=== PATIENT | male | born 1965 | race Caucasian/White ===

== ENCOUNTER 2022-01-13 13:30 | Emergency (ER) | payer OTHER, MEDICAID, SELFPAY ==
[2022-01-13 15:23] VITALS: BP 120/81; PULSE 84; RESP 20; TEMP 36.5; O2SAT 97; BMI 47.0
--- NOTE | 2022-01-13 15:28 | ED_ITS ---
HPI - URI/Sore Throat General Chief Complaint: Upper Respiratory Symptoms Stated Complaint: Sinus infection Time Seen by Provider: 01/13/22 15:36 Source: patient and family Mode of arrival: ambulatory Limitations: no limitations History of Present Illness HPI Narrative: 56-year-old male with a past medical history of sinusitis with sinus surgery in the past presenting to the ER with complaints of 2 weeks of moderate nasal congestion/rhinorrhea/sinus pressure pain and intermittent headaches along with postnasal drip and productive cough for the past 2 weeks worse today. Reports that he tried to go to urgent care and they advised him that he should come to the ER for COVID testing. He denies any fevers, chills, dizziness, headaches medicine/stiffness trouble swallowing or breathing, chest pain or shortness of breath, dyspnea on exertion, orthopnea palpitations paresthesias, nausea/vomiting/diarrhea constipation black or bloody stools, lower extremity edema or calf tenderness, recent travel or sick contacts that he is aware of or any other symptoms complaints or concerns at this time. MD elicited complaint: rhinorrhea, nasal congestion and sinus pain Pertinent past history: sinusitis Onset (ago): week(s) (2) Consistency: constant and progressively worsening Severity: moderate Description of mucous: clear, watery and yellow Able to tolerate fluids by mouth: Yes Exacerbating factors: changing head position and leaning forward Relieving factors: nothing Associated symptoms: headache, rhinorrhea, nasal congestion, sore throat and cough Treatments prior to arrival: none Related Data Home Medications Medication Instructions Recorded Confirmed aspirin 81 mg tablet,delayed 81 mg PO DAILY 12/22/21 release (Adult Low Dose Aspirin) losartan 25 mg tablet 25 mg PO DAILY 12/22/21 metformin 850 mg tablet 850 mg PO BID 12/22/21 naproxen 500 mg tablet 500 mg PO BID 12/22/21 Previous Rx's Medication Instructions Recorded sildenafil 50 mg tablet (Viagra) 50 mg PO DAILY PRN sexual activity 12/22/21 #7 tabs amoxicillin 875 mg-potassium 1 tab PO BID 10 days #20 tabs 01/13/22 clavulanate 125 mg tablet mupirocin 2 % topical ointment 1 appl topical TID impetigo #22 01/13/22 grams prednisone 20 mg tablet 40 mg PO DAILY inflammation 5 days 01/13/22 #10 tabs Allergies Allergy/AdvReac Type Severity Reaction Status Date / Time Clindamycin HCl Allergy Unknown Unknown Uncoded 01/13/22 15:28 Review of Systems Review of Systems: Constitutional : No Weight loss, No Fever, No Chills, No Night Sweats, No Fatigue, No Malaise ENT/Mouth : + nasal congestion/rhinorrhea/sinus pressure pain, + sore throat, No Hearing loss, No Ear Pain, No Hoarseness, No Swallowing Difficulty Eyes: No Eye Pain, No Swelling, No Redness, No Foreign Body, No Discharge, No Vision Changes Cardiovascular : No Chest Pain, No SOB, No Dyspnea on Exertion, No Orthopnea, No Edema, No Palpitations Respiratory : + Cough, + Sputum, No Wheezing, No Smoke Exposure, No Dyspnea Gastrointestinal : No Nausea, No Vomiting, No Diarrhea, No Constipation, No abdominal Pain, No Hematochezia, No Melena Genitourinary : no irregular bleeding, No Dysuria, No Urinary Frequency, No Hematuria, No Urinary Incontinence, No Urgency, No Flank Pain, No Urinary Flow Changes, No Hesitancy Musculoskeletal : No joint pain, No Myalgias, No Joint Swelling Skin : No Skin Lesions, No rash Neuro : No Weakness, No Numbness, No Paresthesias, No Loss of Consciousness, No Dizziness, No Headache Psych : No Anxiety/Panic, No Depression, No SI/HI/AH/VH, No Social Issues, Heme/Lymph: No Bruising, No Bleeding,No Lymphadenopathy Endocrine : No Polyuria, No Polydipsia, No Temperature Intolerance Yes all other systems are reviewed and are negative [facility] Past Medical History Attestation statement: The following information was validated with the patient. Source: old records reviewed, obtained from family and nursing notes reviewed Medical History (Updated 01/13/22 @ 15:28 by MARIELOS Aldana) Hypogonadism, testicular Surgical History History of sinus surgery History of vascular surgery Family History Family History (Updated 10/16/21 @ 10:46 by RENA Hicks) Father No problems noted. Mother Diabetes Atrial fibrillation Social History Social History (Updated 12/22/21 @ 16:19 by RENA Lr) Alcohol intake: current Alcohol intake frequency: holidays/special occasions only Alcohol type: wine Patient Tobacco Use Status: Never used Tobacco Advance Directives: No Advance Directives Information Provided: No Physical Exam Vital Signs: Vital Signs: Last Vital Signs Temp 97.7 F 01/13/22 15:23 Pulse 84 01/13/22 15:23 Resp 20 01/13/22 15:23 BP 120/81 01/13/22 15:23 Pulse Ox 97 01/13/22 15:23 O2 Del Method 01/13/22 15:23 BMI result Body Mass Index 47.0 vital signs have been reviewed as normal and appeared to be correct. Blood p ressure normal. Heart rate normal. Respiration rate normal. Temperature normal. Oxygen saturation normal. Appearance: Alert. Oriented X3. No acute distress. Head: Normal external exam. Normocephalic. Atraumatic. Eyes: PERRLA. EOMI. Conjunctiva and sclera normal. Eyelids normal. ENT: EAC normal. TM's Normal. Pharynx normal. Uvula midline. Moist mucous membranes. No lesions/ulcerations or masses noted on the tongue. Normal voice. No trismus noted. No drooling noted. No muffled voice noted. Neck: Normal inspection. Neck supple. FROM. No adenopathy. Thyroid Normal. No tracheal deviation noted. No crepitus is noted. No meningeal signs. No neck mass noted. No signs of trauma noted. CVS: Normal heart rate and rhythm. Heart sound normal. Pulses normal throughout. No murmurs/rales/gallops. Respiratory: No respiratory distress. Painless inspiration. Breath sounds normal. No wheezes/rales/rhonchi noted. Chest nontender. No crepitus is noted. No accessory muscle usage noted or decreased air movement noted. No signs of trauma. Back: Full range of motion noted. Skin: Skin warm and dry. Normal skin color. Normal skin turgor. No rashes/lesions/lacerations noted. Extremities: No lower extremity edema. No calf tenderness is noted. Extremities exhibit normal range of motion and nontender. Neuro: Oriented X 3. No motor deficit. No sensory deficit. Reflexes normal. Normal steady gait. No focal neuro deficits noted. CN's II-XII intact bilaterally? Course Course Course Narrative: Patient most likely sinusitis/bronchitis. Will obtain a COVID and influenza swab. Will DC home with antibiotics and symptomatic treatment. No additional labs imaging indicated at this time as patient denies any other symptoms reports he feels like this is his sinus infection that he chronically gets. aLong instructions to follow-up with PCP and to return if any new or worsening symptoms. Patient with family at bedside understand and agree this plan. Reevaluation(s) Reevaluation #1: swab invalid and pt did not want to come back for re-swabs Time: 16:27 MDM - URI/Sore Throat Medical Records Attestation: I reviewed the patient's medical records. Lab Data Labs: Lab Results 01/13/22 01/13/22 Range/Units 15:30 15:30 COVID-19 (ANA) Invalid (Negative) COVID-19 Clin Com See Note Influenza Type A (STEPHANIE) Invalid (Negative) Influenza Type B (STEPHANIE) Invalid (Negative) Influenza A & B Note See Note Discharge Plan Discharge Clinical Impression: Sinusitis, Bronchitis, Impetigo Patient Disposition: Home, Self-Care Instructions: Impetigo (ED), Sinusitis (ED), Acute Bronchitis (ED) Prescriptions: New amoxicillin-pot clavulanate 875-125 mg tablet 1 tab PO BID 10 Days Qty: 20 0RF prednisone 20 mg tablet 40 mg PO DAILY 5 Days Qty: 10 0RF mupirocin 2 % ointment 1 appl topical TID Qty: 22 0RF No Action losartan 25 mg tablet 25 mg PO DAILY naproxen 500 mg tablet 500 mg PO BID aspirin [Adult Low Dose Aspirin] 81 mg tablet,delayed release (DR/EC) 81 mg PO DAILY metformin 850 mg tablet 850 mg PO BID sildenafil [Viagra] 50 mg tablet 50 mg PO DAILY PRN (Reason: sexual activity) Qty: 7 2RF Rx Instructions: administer 30 minutes to 4 hours before activity Referrals: Wander Jenkins MD [Primary Care Provider] - 2 days
[2022-01-13 16:07] LABS: IDNOW Serial# 55D5AD1C
[2022-01-13 16:08] LABS: COVID-19 Test Invalid (Negative); Influenza A Invalid (Negative); Influenza B2 Invalid (Negative)
== END 2022-01-13 16:48 | disposition home or self-care (01) ==
LOC: HO.ED 15:38
PROVIDERS: Physician Assistant Medical; Emergency Provider Emergency Medicine; PCP Internal Medicine
DX: J32.9 Chronic sinusitis, unspecified (principal); J40 Bronchitis, not specified as acute or chronic; L01.00 Impetigo, unspecified; Z20.822 Contact with and (suspected) exposure to COVID-19
CPT/HCPCS: 87502; 87635; 99282; 99283

== ENCOUNTER 2022-05-22 11:28 | Outpatient (REF) | payer OTHER, MEDICAID, SELFPAY ==
[2022-05-27 21:29] LABS: Testosterone, Total 15 ng/dL (250-1100)
== END 2022-05-22 11:29 | disposition home or self-care (01) ==
LOC: HO.10HDL 11:28
PROVIDERS: Visit Provider Internal Medicine Endocrinology, Diabetes & Metabolism
DX: E29.1 Testicular hypofunction (principal)
CPT/HCPCS: 36415; 84402; 84403

== ENCOUNTER 2022-06-02 00:06 | Emergency (ER) | payer OTHER, MEDICAID, SELFPAY ==
--- NOTE | ~2022-06-02 | XR_ITS ---
EXAMINATION: XR CHEST CLINICAL INFORMATION: Shortness of breath COMPARISON: None available. TECHNIQUE: 2 views of the chest were obtained. FINDINGS: No significant abnormality is noted involving the heart, lungs, mediastinum, bony thorax or soft tissues. XR/XR chest 2V IMPRESSION: Unremarkable examination.
[2022-06-02 00:30] VITALS: BP 126/60; PULSE 91; RESP 16; TEMP 36.9; O2SAT 93; BMI 46.2
[2022-06-02 01:15] LABS: COVID-19 Test Negative (Negative); IDNOW Serial# 08D9AD1C; IDNOW Serial# 6674DD1D; IDNOW Serial# BCCEAD1C; Influenza A Negative (Negative); Influenza B2 Negative (Negative); Strep A Nucleic Acid Negative (Negative)
--- NOTE | 2022-06-02 01:39 | PC.NURSE ---
pt brought back to ED, respirations even and unlabored, reporting no pain, increased sinus pressure. O2 sat good at 97% on room air. MARIELOS Cote in to see patient at this time
[2022-06-02 01:41] VITALS: PULSE 90; RESP 17; O2SAT 97
--- NOTE | 2022-06-02 01:45 | ED.GENADULT ---
HPI - General Adult General Chief complaint: Upper Respiratory Symptoms Stated complaint: L Earache/Sinus infection Time Seen by Provider: 06/02/22 01:28 Source: patient and RN notes reviewed Mode of arrival: ambulatory Limitations: no limitations History of Present Illness HPI narrative: 56-year-old male with past medical history significant for diabetes presents for evaluation of sinus congestion, left ear pain, cough. Patient reports his symptoms started about 1 and half weeks ago. He reports facial pressure, headache, left ear pain. Denies any fevers He denies any significant shortness of breath He states his cough is productive of yellow to green sputum Patient reports he was diagnosed with a sinus infection about 6 months ago and was treated with Augmentin which seem to help No other complaints or concerns at this time. The patient denies any chest pain Related Data Home Medications Medication Instructions Recorded Confirmed aspirin 81 mg tablet,delayed 81 mg PO DAILY 12/22/21 release (Adult Low Dose Aspirin) losartan 25 mg tablet 25 mg PO DAILY 12/22/21 metformin 850 mg tablet 850 mg PO BID 12/22/21 naproxen 500 mg tablet 500 mg PO BID 12/22/21 Previous Rx's Medication Instructions Recorded sildenafil 50 mg tablet (Viagra) 50 mg PO DAILY PRN sexual activity 12/22/21 #7 tabs amoxicillin 875 mg-potassium 1 tab PO BID 10 days #20 tabs 01/13/22 clavulanate 125 mg tablet mupirocin 2 % topical ointment 1 appl topical TID impetigo #22 01/13/22 grams prednisone 20 mg tablet 40 mg PO DAILY inflammation 5 days 01/13/22 #10 tabs amoxicillin 875 mg-potassium 1 tab PO BID #20 tabs 06/02/22 clavulanate 125 mg tablet Allergies Allergy/AdvReac Type Severity Reaction Status Date / Time Clindamycin HCl Allergy Unknown Unknown Uncoded 01/13/22 15:28 Review of Systems Constitutional: Constitutional: Reports as per HPI, Denies chills, Denies fatigue and Denies fever(s) ENT: Reports otalgia and Reports facial pain Cardiovascular: Cardiovascular: Denies chest pain and Denies dyspnea Respiratory: Respiratory: Denies cough and Denies dyspnea Gastrointestinal: Gastrointestinal: Denies abdominal pain, Denies constipation and Denies vomiting Genitourinary: Genitourinary: Denies difficulty urinating and Denies dysuria Neurologic: Denies focal weakness Endocrine: Endocrine: Denies fatigue [facility] Past Medical History Medical History (Updated 06/03/22 @ 00:02 by Kassy Tiardo) Hypogonadism, testicular Surgical History History of sinus surgery History of vascular surgery Family History Family History (Updated 10/16/21 @ 10:46 by RENA Hicks) Father No problems noted. Mother Diabetes Atrial fibrillation Social History Social History (Updated 12/22/21 @ 16:19 by RENA Lr) Alcohol intake: current Alcohol intake frequency: holidays/special occasions only Alcohol type: wine Patient Tobacco Use Status: Never used Tobacco Advance Directives: No Advance Directives Information Provided: No Physical Exam ED Vital Signs: Vital Signs - 24 hr 06/02/22 00:30 06/02/22 01:41 Temperature 98.5 F Pulse Rate 91 90 Respiratory Rate 16 17 Blood Pressure 126/60 Pulse Oximetry 93 97 Oxygen Delivery Method Room Air BMI result Body Mass Index 46.2 Const General: healthy appearing, comfortable, no acute distress, alert and awake Nutritional Appearance: well nourished Orientation/consciousness: patient oriented x3 HENMT Head: Yes normocephalic and Yes atraumatic Ears: external ears normal, TM normal on the left (Left TM with middle ear effusion, no erythema, no perforation) and EAC's normal Face and sinus: Yes sinus tenderness Throat: Yes posterior oropharynx normal Eyes Eyelids: Yes eyelids normal Conjunctivae: conjunctivae normal Sclerae: sclerae normal Corneas: corneas normal Pupils: Equal, round and reactive pupils present EOM: EOMs intact bilaterally Neck Neck: Yes full ROM Resp Effort & Inspection: normal respiratory effort, able to speak in complete sentences, no audible wheezes and not labored Auscultation: clear to auscultation bilaterally Cardio Rate: regular rate Rhythm: regular rhythm GI Inspection: No distended Palpation (GI): Soft to palpation, not firm, nontender, no guarding and not rigid Auscultation: normoactive bowel sounds Skin General skin exam: no rashes or lesions noted and elasticity normal Neuro General: patient oriented x3 Cranial nerves: Yes CN's II-XII intact bilaterally, Yes Equal, round and reactive pupils present and Yes Bilaterally intact EOM present Cognition (Neuro): normal cognition Extrem Other: Moving all extremities well without any obvious deformities Medical Decision Making Medical Decision Making MDM Narrative: 56-year-old male presents for evaluation of upper respiratory symptoms including cough, facial pain, ear pain. Chest x-ray is clear without evidence of pneumonia. Vital signs are stable. He is over 1 week of sinus pressure, we will treat as acute sinusitis. Patient's vital signs are stable, his viral swab was negative Differential Diagnosis Acute sinusitis Upper respiratory infection Viral syndrome Pneumonia Otitis media Otitis externa Lab Data Labs: Lab Results 06/02/22 06/02/22 06/02/22 Range/Units 00:50 00:50 00:50 COVID-19 (ANA) Negative (Negative) COVID-19 Clin Com See Note Influenza Type A (STEPHANIE) Negative (Negative) Influenza Type B (STEPHANIE) Negative (Negative) Influenza A & B Note See Note S. pyogenes GrpA STEPHANIE Negative (Negative) Discharge Plan Discharge Clinical Impression: Acute sinusitis Patient Disposition: Home, Self-Care Instructions: Sinusitis (ED) Additional Instructions: Take Augmentin twice daily for the next 10 days. You may use [id number] decongestant. Use ibuprofen/Tylenol Prescriptions: New amoxicillin-pot clavulanate 875-125 mg tablet 1 tab PO BID Qty: 20 0RF No Action amoxicillin-pot clavulanate 875-125 mg tablet 1 tab PO BID 10 Days Qty: 20 0RF prednisone 20 mg tablet 40 mg PO DAILY 5 Days Qty: 10 0RF mupirocin 2 % ointment 1 appl topical TID Qty: 22 0RF losartan 25 mg tablet 25 mg PO DAILY naproxen 500 mg tablet 500 mg PO BID aspirin [Adult Low Dose Aspirin] 81 mg tablet,delayed release (DR/EC) 81 mg PO DAILY metformin 850 mg tablet 850 mg PO BID sildenafil [Viagra] 50 mg tablet 50 mg PO DAILY PRN (Reason: sexual activity) Qty: 7 2RF Rx Instructions: administer 30 minutes to 4 hours before activity Interventions: ED Discharge Assessment Last Done: 06/02/22 01:57 Discharge Date/Time: 06/02/22 02:03
== END 2022-06-02 02:03 | disposition home or self-care (01) ==
PROVIDERS: Emergency Provider Emergency Medicine; PCP Internal Medicine
DX: J32.9 Chronic sinusitis, unspecified (principal); H92.02 Otalgia, left ear; Z20.822 Contact with and (suspected) exposure to COVID-19; E11.9 Type 2 diabetes mellitus without complications; Z79.82 Long term (current) use of aspirin; Z79.84 Long term (current) use of oral hypoglycemic drugs; Z79.899 Other long term (current) drug therapy
CPT/HCPCS: 71046; 87502; 87635; 87651; 99283